=== PATIENT | male | born 1995 | race Caucasian/White ===

== ENCOUNTER 2021-05-18 17:21 | Emergency (ER) | payer OTHER ==
[~2021-05-18 17:21] MED LIST: AUGMENTIN 875-1 EACH PO; ZOFRAN4 MG SL
[2021-05-18 19:48] LABS: BASOPHIL 0.2 % (0-2); EOSINOPHIL 0 % (0-5); HCT 46.1 % (42.0-52.0); HGB 15.9 g/dl (13.2-18.0); LYMPHOCYTE 13.5 % (15-48); MCH 29.6 pg (25.0-31.0); MCHC 34.5 g/dL (32.0-36.0); MCV 85.7 fL (78.0-100.0); MONOCYTE 6.1 % (0-12); MPV 10.4 fL (6.0-9.5); NRBC 0; PLT 171 K/uL (150-400); RBC 5.38 M/uL (4.70-6.00); RDW 11.7 % (11.5-14.0); WBC 5.6 K/uL (4.0-10.5)
[2021-05-18 20:07] LABS: BUN/CREAT RATIO (CALC) 12.3 RATIO; CREATININE 0.81 mg/dL (0.67-1.17); POTASSIUM 4.2 mmol/L (3.5-5.1)
[2021-05-18] MEDS ORDERED: MEDROL 4MG DOSEP4 MG PO (21:54)
[2021-05-18] MEDS ORDERED: VENTOLIN HFA IN18 GM INH (21:55)
[2021-05-18] MEDS ORDERED: DUONEB 2.5-0.5M1 AMP INH (22:27)
== END 2021-05-18 22:45 | disposition home or self-care (01) ==
LOC: FER 17:21
PROVIDERS: Nurse Practitioner Family
DX: U07.1 COVID-19 (principal)
CPT/HCPCS: 36415; 71045; 80048; 85025; J1100; J7030; J7120